=== PATIENT | female | born 1950 | race Caucasian/White ===

== ENCOUNTER → 2018-08-26 | Outpatient (CLI) | payer OTHER ==
[~2018-08-26] MED LIST: ACET325T14 PO; ASCO-96 PO; CALC-56 PO; LEVO100T5 PO; LOVA40TA2 PO; NAPR250T6 PO; OMEG1CAP34 PO; Tylenol PM PEG; [UNRECOGNIZED DRUG - OTHER] PO
== END | disposition home or self-care (01) ==
LOC: CFH 12:32
PROVIDERS: ATTEND Family Medicine
DX: R92.2 Inconclusive mammogram (principal)
CPT/HCPCS: 77066